=== PATIENT | male | born 1970 | race Caucasian/White ===

== ENCOUNTER 2023-02-02 06:38 | Day surgery (SDC) | payer OTHER, BC ==
[~2023-02-02 06:38] MED LIST: Acetaminophen 500 MG Tab PO ONE; Bupivacaine 0.5%/EPINEPHrine 1:200,000 50 ML MDV ONE
[2023-02-02] MEDS ORDERED: fentaNYL 250 MCG/5 ML SDV ONE ×3 (07:26→11:05)
[2023-02-02] MEDS ORDERED: Glycopyrrolate 0.2 MG/ML 5 ML MDV ONE (07:26)
[2023-02-02] MEDS ORDERED: Neostigmine Methylsulfate 1 MG/ML 5 ML Syringe ONE (07:26)
[2023-02-02] MEDS ORDERED: Ondansetron 4 MG/2 ML SDV ONE (07:26)
[2023-02-02] MEDS ORDERED: Rocuronium 50 MG/5 ML Vial ONE ×3 (07:26→12:10)
[2023-02-02] MEDS ORDERED: Dexamethasone 4 MG/ML SDV ONE (07:26)
[2023-02-02] MEDS ORDERED: Propofol 200 MG/20 ML SDV ONE (07:26)
[2023-02-02] MEDS ORDERED: Sodium Chloride 0.9% 1,000 ML IV SCH (07:30)
[2023-02-02] MEDS ORDERED: Acetaminophen 500 MG Tab PO ONE (07:30)
[2023-02-02] MEDS ORDERED: cefTRIAXone 2 GM in Sodium Chloride 0.9% 50 ML IV ONE (09:00)
[2023-02-02] MEDS ORDERED: hydrALAZINE 20 MG/ML SDV ONE (09:44)
[2023-02-02] MEDS ORDERED: Lactated Ringers 1,000 ML ONE (10:51)
[2023-02-02] MEDS ORDERED: Acetaminophen/HYDROcodone 325-5 MG Tab PO ONE (13:50)
== END 2023-02-02 14:35 | disposition home or self-care (01) ==
LOC: JP.SDS 06:38
PROVIDERS: ATTEND Student in an Organized Health Care Education/Training Program
DX: K40.90 Unilateral inguinal hernia, without obstruction or gangrene, not specified as recurrent (principal); G47.33 Obstructive sleep apnea (adult) (pediatric); F17.200 Nicotine dependence, unspecified, uncomplicated; J45.20 Mild intermittent asthma, uncomplicated; Z79.899 Other long term (current) drug therapy
CPT/HCPCS: 49505; A9270; C1781; J0360; J0696; J1100; J2405; J2704; J2710; J3010; J3490; J7030; J7120

== ENCOUNTER 2024-07-04 10:30 | Emergency (ER) | payer BC, OTHER ==
[2024-07-04 11:26] LABS: BASOPHILS ABSOLUTE AUTO 0.06 K/uL (0.00-0.10); BASOPHILS PERCENT AUTO 0.6 % (0.1-1.3); HEMATOCRIT 41.1 % (38.4-49.7); HEMOGLOBIN 14.7 g/dL (12.9-16.9); IMMATURE GRAN ABSOLUTE AUTO 0.04 K/uL (0.00-0.23); IMMATURE GRAN PERCENT AUTO 0.4 % (0.0-0.7); LYMPHOCYTES ABSOLUTE AUTO 1.46 K/uL (0.8-3.3); LYMPHOCYTES PERCENT AUTO 13.8 % (11.4-47.7); MEAN CORPUSCULAR HEMOGLOBIN 33.1 pg (31.6-35.5); MEAN CORPUSCULAR HGB CONC 35.8 g/dL (31.6-35.5); MEAN CORPUSCULAR VOLUME 92.6 fL (81.4-99.0); MONOCYTES ABSOLUTE AUTO 0.81 K/uL (0.20-0.90); MONOCYTES PERCENT AUTO 7.7 % (3.3-12.6); NEUTROPHILS ABSOLUTE AUTO 8.19 K/uL (1.0-7.6); NEUTROPHILS PERCENT AUTO 77.5 % (40.0-78.1); PLATELET COUNT,PLT 247 K/uL (130-375); RED BLOOD CELL COUNT 4.44 M/uL (4.14-5.76); WHITE BLOOD CELL COUNT,WBC 10.6 K/uL (3.2-11.0)
[2024-07-04 11:41] LABS: CALCIUM 8.5 mg/dL (8.5-10.1); CREATININE 0.9 mg/dL (0.8-1.3); EST CRCL DRUG DOSING (CG) 96.01 mL/min
[2024-07-04 12:16] LABS: CORONAVIRUS COVID-19 NAA NEGATIVE (NEGATIVE); INFLUENZA A NAA NEGATIVE (NEGATIVE); INFLUENZA B NAA NEGATIVE (NEGATIVE); RESPIRATORY SYNCYTIAL VIR NAA NEGATIVE (NEGATIVE)
[2024-07-04] MEDS: Iopamidol 755 Mg/ML 100 ML Bottle IV SCH (13:02)
[2024-07-04] MEDS: Sodium Chloride 0.9% 100 ML IV ONE (13:02)
[2024-07-04] MEDS: Sodium Chloride 0.9% 10 ML Syringe FLUSH PRN (13:02)
[2024-07-08 05:17] LABS: HISTOPLASMA GALACTO AG INTRP,U Not Detected (Not Detected); HISTOPLASMA GALACTOMAN AG QN,U Not Detected
[2024-07-09 15:06] LABS: ASPERGILLUS ANTIBODIES BY ID Not Detected (Not Detected); BLASTOMYCES ANTIBODIES BY ID Not Detected (Not Detected); COCCIDIOIDES BY ID, SERUM Not Detected (Not Detected); HISTOPLASMA ANTIBODIES BY ID Not Detected (Not Detected)
== END 2024-07-04 15:48 | disposition home or self-care (01) ==
LOC: JP.ED 10:30
DX: J22 Unspecified acute lower respiratory infection (principal); I10 Essential (primary) hypertension; Z86.16 Personal history of COVID-19; F17.210 Nicotine dependence, cigarettes, uncomplicated; Z79.899 Other long term (current) drug therapy
CPT/HCPCS: 0241U; 36415; 71046; 71275; 80048; 85025; 85379; 86606; 86612; 86635; 86698; 87385; 87449; 99284; J3490; Q9967; 99283

== ENCOUNTER 2024-10-15 12:19 | Emergency (ER) | payer BC, MEDICAID ==
[2024-10-15 13:49] LABS: BASOPHILS ABSOLUTE AUTO 0.04 K/uL (0.00-0.10); BASOPHILS PERCENT AUTO 0.6 % (0.1-1.3); HEMATOCRIT 43.4 % (38.4-49.7); HEMOGLOBIN 15.7 g/dL (12.9-16.9); IMMATURE GRAN PERCENT AUTO 0.1 % (0.0-0.7); LYMPHOCYTES ABSOLUTE AUTO 1.05 K/uL (0.8-3.3); LYMPHOCYTES PERCENT AUTO 15.1 % (11.4-47.7); MEAN CORPUSCULAR HEMOGLOBIN 33.3 pg (31.6-35.5); MEAN CORPUSCULAR HGB CONC 36.2 g/dL (31.6-35.5); MEAN CORPUSCULAR VOLUME 92.1 fL (81.4-99.0); MONOCYTES ABSOLUTE AUTO 0.66 K/uL (0.20-0.90); MONOCYTES PERCENT AUTO 9.5 % (3.3-12.6); NEUTROPHILS PERCENT AUTO 74.7 % (40.0-78.1); PLATELET COUNT,PLT 171 K/uL (130-375); RED BLOOD CELL COUNT 4.71 M/uL (4.14-5.76)
[2024-10-15 13:58] LABS: IMMATURE GRAN ABSOLUTE AUTO 0.01 K/uL (0.00-0.23)
[2024-10-15 14:16] LABS: CALCIUM 8.5 mg/dL (8.5-10.1); CREATININE 0.9 mg/dL (0.8-1.3); EST CRCL DRUG DOSING (CG) 99.14 mL/min
[2024-10-15] MEDS: Sodium Chloride 0.9% 100 ML IV SCH (15:31)
[2024-10-15] MEDS: Iopamidol 755 Mg/ML 100 ML Bottle IV SCH (15:31)
== END 2024-10-15 17:04 | disposition home or self-care (01) ==
LOC: JP.ED 12:19
DX: R07.89 Other chest pain (principal); I10 Essential (primary) hypertension; J45.909 Unspecified asthma, uncomplicated; Z79.51 Long term (current) use of inhaled steroids; Z79.899 Other long term (current) drug therapy
CPT/HCPCS: 36415; 71275; 80048; 84484; 85025; 85379; 93005; 99285; Q9967

== ENCOUNTER 2025-03-01 20:00 | Emergency (ER) | payer BC, MEDICAID ==
[2025-03-01 20:38] LABS: AMPHETAMINES SCREEN, URINE NEGATIVE (NEGATIVE); BARBITURATE SCREEN,URINE NEGATIVE (NEGATIVE); BENZODIAZEPINES SCREEN,URINE NEGATIVE (NEGATIVE); METHADONE SCREEN, URINE NEGATIVE (NEGATIVE); METHAMPHETAMINES SCREEN, URINE NEGATIVE (NEGATIVE); OXYCODONE SCREEN,URINE NEGATIVE (NEGATIVE); PROPOXYPHENE SCREEN,URINE NEGATIVE (NEGATIVE); THC SCREEN,URINE 50 NG/ML NEGATIVE (NEGATIVE)
== END 2025-03-01 23:40 | disposition other institution (70) ==
LOC: JP.ED 20:00
DX: F10.10 Alcohol abuse, uncomplicated (principal); I10 Essential (primary) hypertension; J45.909 Unspecified asthma, uncomplicated; Z86.16 Personal history of COVID-19; F17.200 Nicotine dependence, unspecified, uncomplicated; Z79.899 Other long term (current) drug therapy
CPT/HCPCS: 36415; 80305-QW; 80307; 99284